=== PATIENT | male | born 1955 | race Caucasian/White ===

== ENCOUNTER 2018-02-15 13:15 | Outpatient (CLI) | payer SELFPAY ==
[2018-02-15 19:15] LABS: CHOL/HDL RATIO 9.6 (<5.0); CHOLESTEROL 260 mg/dL; HDL CHOLESTEROL 27 mg/dL; LDL CHOLESTEROL,CALCULATED 198 mg/dL; LDL/HDL RATIO 7.3 (<3.6); VLDL CHOLESTEROL 35 mg/dL
== END 2018-02-15 23:59 | disposition home or self-care (01) ==
LOC: LAB.WCP 13:15
PROVIDERS: ATTEND Family Medicine
DX: E78.5 Hyperlipidemia, unspecified (principal)
CPT/HCPCS: 36415; 80061; 83721

== ENCOUNTER 2021-05-08 13:05 | Emergency (ER) | payer OTHER ==
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
[2021-05-08] MEDS ORDERED: IOVERSOL 320 50 ML VIAL ONE (13:26)
[2021-05-08] MEDS ORDERED: IOVERSOL 320 100 ML VIAL IVP ONE (13:29)
[2021-05-08] MEDS: IOVERSOL 320 100 ML VIAL IVP ONE (13:35)
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
[2021-05-08 13:52] VITALS: BP 161/107
== END 2021-05-08 14:18 | disposition home or self-care (01) ==
LOC: EDUNIT# → ED 13:05
DX: S00.83XA Contusion of other part of head, initial encounter (principal); S02.2XXA Fracture of nasal bones, initial encounter for closed fracture; Y04.2XXA Assault by strike against or bumped into by another person, initial encounter; Y93.9 Activity, unspecified; Y92.039 Unspecified place in apartment as the place of occurrence of the external cause; R55 Syncope and collapse
CPT/HCPCS: 70450; 70486; 70498; 99282; 99284; Q9967

== ENCOUNTER 2021-11-07 06:31 | Day surgery (SDC) | payer MEDICARE ==
[~2021-11-07 06:31] MED LIST: ACETAMINOPHEN 500 MG TABLET PO ONE; CEFAZOLIN 2G/50ML 0.9% NS 2 GM/50 ML BAG IV ONE; CELECOXIB 100 MG CAPSULE PO ONE; GABAPENTIN 400 MG CAPSULE ONE; TAMSULOSIN 0.4 MG CAPSULE ONE
[2021-11-07] MEDS ORDERED: LACTATED RINGERS 1,000 ML IV ONE ×3 (06:52→10:25)
[2021-11-07] MEDS ORDERED: PROPOFOL 200 MG/20 ML VIAL IVP ONE (07:04)
[2021-11-07] MEDS ORDERED: LIDOCAINE-MPF 2% 5 ML VIAL ONE (07:04)
[2021-11-07] MEDS ORDERED: MIDAZOLAM 2 MG/2 ML VIAL ONE (07:05)
[2021-11-07] MEDS ORDERED: fentaNYL 100 MCG/2 ML VIAL ONE (07:05)
[2021-11-07] MEDS ORDERED: MORPHINE 2 MG/ML CARPUJECT IVP PRN (07:21)
[2021-11-07] MEDS ORDERED: HYDROmorphone 0.5 MG/0.5 ML SYRINGE IVP PRN (07:21)
[2021-11-07] MEDS ORDERED: fentaNYL 100 MCG/2 ML VIAL IVP PRN (07:21)
[2021-11-07] MEDS ORDERED: NALOXONE 0.4 MG/ML VIAL IVP PRN (07:21)
[2021-11-07] MEDS ORDERED: ONDANSETRON 4 MG/2 ML VIAL IVP PRN ×2 (07:21→09:46)
[2021-11-07] MEDS ORDERED: ePHEDrine 50 MG/ML VIAL IVP PRN (07:21)
[2021-11-07] MEDS ORDERED: METOCLOPRAMIDE 10 MG/2 ML VIAL IVP PRN (07:21)
[2021-11-07] MEDS ORDERED: ATROPINE ABBOJECT 1 MG/10 ML SYRINGE IVP PRN (07:21)
--- NOTE | 2021-11-07 07:21 | ANESTHESIA ---
Pre-Anesthesia VS, & Labs - Diagnosis L inguinal hernia - Procedure L inguinal hernia repair, open Vital Signs: Temp Pulse Resp BP Pulse Ox O2 Flow Rate 36 C L 68 16 131/87 H 97 11/07/21 06:45 11/07/21 06:45 11/07/21 06:45 11/07/21 06:45 11/07/21 06:45 Height: 6 ft Weight (kg): 92.5 kg Body Mass Index: 27.6 BMI Classification: Overweight - NPO >8 hours Home Medications and Allergies Lisinopril/Hydrochlorothiazide [Zestoretic 20-25 mg Tablet] 1 each PO DAILY Allergies/Adverse Reactions: Allergies Allergy/AdvReac Type Severity Reaction Status Date / Time No Known Drug Allergies Allergy Verified 05/08/21 13:11 Anes History & Medical History - Anesthetic History Anesthesia Complications: reports: No previous complications Family history of Anesthesia Complications: Denies Family history of Malignant Hyperthermia: Denies - Medical History Cardiovascular: reports: Hypertension, High cholesterol Pulmonary: reports: None Gastrointestinal: reports: None Urinary: reports: Nocturia Neuro: reports: None Musculoskeletal: reports: None Endocrine/Autoimmune: reports: None Blood Disorders: reports: None Skin: reports: None Smoking Status: Never smoker - Surgical History General: reports: Colonoscopy Eyes Ears Nose Throat (EENT): reports: Tonsil/Adenoidectomy Orthopedic: reports: Spine surgery Exam General: Alert, Oriented x3, Cooperative Dental: WNL Mouth Openin Fingerbreadth Neck Mobility: Normal Mallampati classification: II Thyromental Distance: 4-6 cm Respiratory: Lungs clear, Normal breath sounds, No respiratory distress Cardiovascular: Regular rate Neurological: Normal speech Mental/Cognitive Status: Alert/Oriented X3, Normal for patient Cognitive Status: Within normal limits Plan Anesthesia Type: General Consent for Procedure(s) Verified and Reviewed: Yes Code Status: Attempt Resuscitation ASA classification: 2-Mild systemic disease Is this case an emergency?: No
--- NOTE | 2021-11-07 07:24 | ANESTHESIA ---
Pre-Anesthesia VS, & Labs - Diagnosis Left inguinal hernia - Procedure Left inguinal hernia repair Vital Signs: Temp Pulse Resp BP Pulse Ox O2 Flow Rate 36 C L 68 16 131/87 H 97 11/07/21 06:45 11/07/21 06:45 11/07/21 06:45 11/07/21 06:45 11/07/21 06:45 Height: 6 ft Weight (kg): 92.5 kg Body Mass Index: 27.6 BMI Classification: Overweight - NPO >8 hours Home Medications and Allergies Lisinopril/Hydrochlorothiazide [Zestoretic 20-25 mg Tablet] 1 each PO DAILY Allergies/Adverse Reactions: Allergies Allergy/AdvReac Type Severity Reaction Status Date / Time No Known Drug Allergies Allergy Verified 05/08/21 13:11 Anes History & Medical History - Medical History Cardiovascular: reports: Hypertension, High cholesterol Pulmonary: reports: None Gastrointestinal: reports: None Urinary: reports: Nocturia Neuro: reports: None Musculoskeletal: reports: None Endocrine/Autoimmune: reports: None Blood Disorders: reports: None Skin: reports: None Smoking Status: Never smoker - Surgical History General: reports: Colonoscopy Eyes Ears Nose Throat (EENT): reports: Tonsil/Adenoidectomy Orthopedic: reports: Spine surgery
[2021-11-07] MEDS ORDERED: BUPIVACAINE 0.25% PF 10 ML VIAL ONE ×2 (07:31→08:07)
[2021-11-07] MEDS ORDERED: BUPIVACAINE 0.25% PF 10 ML VIAL SUBQ ONE (07:58)
[2021-11-07] MEDS ORDERED: LACTATED RINGERS 1,000 ML IV SCH (08:00)
[2021-11-07] MEDS ORDERED: SODIUM CHLORIDE 0.9% 10 ML VIAL IVP ONE (08:01)
[2021-11-07] MEDS ORDERED: PHENYLEPHRINE 10 MG/ML VIAL ONE (08:36)
[2021-11-07] MEDS ORDERED: HYDROcod/ACETAM 5/325 MG TABLET PO PRN (09:46)
--- NOTE | 2021-11-07 09:51 | OPERATIVE REPORT ---
Operative Report - General Procedure Date: 11/07/21 Planned Procedure: open inguinal hernia repair with mesh Pre-Op Diagnosis: left inguinal hernia Procedure Performed: open left inguinal hernia repair with mesh Post Op Diagnosis: large indirect left inguinal hernia - Procedure Note Primary Surgeon: Dr. Stephy Thornton Anesthesia Technique: General LMA, Local, Regional block (L ileoinguinal nerve block) Pathology: hernia sac, sent to pathology Estimated Blood Loss (mL): 20 Indications: The patient has had a left groin bulge which has become increasingly painful over the last 3 years. He was seen and evaluated in the clinic for a left inguinal hernia. We discussed the risks, benefits, and alternatives of open inguinal hernia repair with mesh. These risks include but are not limited to bleeding, infection, damage to surrounding structures, chronic pain, recurrence of the hernia, infection of the mesh requiring removal, and the need for further surgeries or procedures. The patient voiced understanding, his questions were answered, and he wished to proceed with surgery. A consent was signed by the patient in clinic. Findings: 1.Large indirect inguinal hernia with significant scarring 2. PHSE prolene hernia system used Complications: none - Other Other Information/Narrative: The patient was brought to the operative suite and placed in the supine position. General endotracheal anesthesia was induced. Preop antibiotics were given and ERAS protocol was followed. Patient was prepped and draped in the usual sterile fashion. A preop surgical timeout was performed. Next, local was used to perform a left ilioinguinal nerve block. The incision was planned overlying the area of the hernia following the skin crease. An incision was made with a 15 blade scalpel and carried down through the skin and subcutaneous tissues to the level of the external abdominal oblique. Excellent hemostasis was maintained. Local was injected just deep to the external abdominal oblique and the external abdominal oblique muscle was opened using a 15 blade scalpel following the muscle fibers. This incision was enlarged using Metzenbaum scissors through the external inguinal ring and slightly laterally. Next the cord structures were isolated from the surrounding tissues and a [place] drain was passed around them. At this point, the external inguinal ring was significantly scarred to the cord structures and careful dissection was undertaken to free these two structures from each other. The hernia sac was identified and isolated from the surrounding tissues taking great care to avoid any cord structures. The patient was noted to have a large indirect inguinal hernia. Due to the significant scarring the hernia sac was inadvertently entered during the process of freeing it from the surrounding tissues. The colon was noted to be adherent to the hernia sac. These adhesions were carefully taken down using blunt and sharp dissection with electrocautery and the colon was reduced. The hernia sac was freed circumferentially and a high ligation of the hernia sac was performed with a 2-0 Vicryl. Next, a PHSE Prolene hernia system was brought onto the field and placed in the preperitoneal space the external component was opened. It was tacked medially and inferiorly to the pubic tubercle using a 2-0 PDS suture. It was also tacked to the shelving edge inferiorly and laterally and to the shelving edge superiorly to allow it to lie flat. A slit was made to accommodate the cord structures and the external inguinal ring was re-created. Care was taken to ensure that there was adequate space to accommodate the cord structures and swelling postoperatively. The corners of the mesh were reapproximated to re-create this ring using 2-0 PDS. Additional local was injected into the tissues in the areas where the sutures were placed. Next, the external abdominal oblique muscle was reapproximated with 2-0 Vicryl in a running fashion. Then, Coco's fascia was reapproximated with 3-0 Vicryl in an interrupted fashion. The subcutaneous tissues were irrigated with warm normal saline. The deep dermal tissues were reapproximated with 3-0 Vicryl in an interrupted fas hion. Finally, 4-0 Monocryl was used to reapproximate the skin edges in a running subcuticular fashion. A sterile dressing of skin glue was placed. The patient tolerated the procedure well. Both testicles were noted to be within the scrotum at the end of the case. There were no complications.
[2021-11-07] MEDS ORDERED: HYDROcod/ACETAM 5/325 MG TABLET ONE (11:00)
--- NOTE | 2021-11-07 11:26 | ANESTHESIA POST OP EVALUATION ---
Anesthesia Post Eval - Post Anesthesia Eval Vitals: Last Vital Signs Temp 36.8 C 11/07/21 11:00 Pulse 67 11/07/21 11:00 Resp 16 11/07/21 11:00 BP 112/73 11/07/21 11:00 Pulse Ox 97 11/07/21 11:00 O2 Flow Rate CV Function Including HR & BP: Stable Pain Control: Satisfactory Nausea & Vomiting: Negative Mental Status: Baseline Respiratory Status: Airway Patent Hydration Status: Satisfactory Anesthesia Complications: None
[2021-11-07 11:47] VITALS: BP 112/72
== END 2021-11-07 06:32 | disposition home or self-care (01) ==
LOC: SDS 06:31
PROVIDERS: ATTEND Surgery
PROC: 0YU60JZ Supplement Left Inguinal Region with Synthetic Substitute, Open Approach (ICD-10-PCS; principal; 2021-11-07 07:30)
DX: K40.90 Unilateral inguinal hernia, without obstruction or gangrene, not specified as recurrent (principal); I10 Essential (primary) hypertension
CPT/HCPCS: 49505; A9270; C1713; J0690; J7120